=== PATIENT | female | born 1990 | race Caucasian/White ===

== ENCOUNTER → 2018-06-21 11:00 | Outpatient (CLI) | payer BC, SELFPAY ==
[2018-06-21 11:22] LABS: Basophils # 0.1 K/mm3 (0-0.2); Basophils % 0.6 % (0.1-2.0); Eosinophils # 0.1 K/mm3 (0.0-0.4); Eosinophils % 1.5 % (0.1-12.0); Hematocrit 44.2 % (37.0-47.0); Hemoglobin 15.3 g/dL (12.2-16.2); Lymphocytes # 2.2 K/mm3 (0.7-4.5); Lymphocytes % 23.1 % (10-50); Mean Corpuscular HGB Conc 34.6 g/dL (31.8-35.4); Mean Corpuscular Hemoglobin 30.5 pg (27.0-31.2); Mean Corpuscular Volume 88.2 fl (81-99); Mean Platelet Volume 7.4 fl (7.4-10.4); Monocytes # 0.5 K/mm3 (0.1-1.0); Monocytes % 5.2 % (1.7-9.3); Neutrophils # 6.8 K/mm3 (1.8-7.8); Neutrophils % 69.7 % (37.0-80.0); Platelet Count 288 K/mm3 (142-424); Red Blood Count 5.01 M/mm3 (4.20-5.40); Red Cell Distribution Width 12.4 % (11.5-17.5); White Blood Count 9.7 K/mm3 (4.8-10.8)
[2018-06-21 12:20] LABS: HCG,Quantitative 7531 mIU/mL
[2018-06-22 08:19] LABS: Rapid Plasma Reagin Ab Titer Non Reactive (NonRea<1:1)
[2018-06-23 06:22] LABS: Hepatitis B Surface Antigen Negative (Negative); Hepatitis C Antibody 0.1 s/co ratio (0.0-0.9); Rubella Antibodies, IgG 3.21 index (Immune >0.99)
[2018-06-23 06:23] LABS: HIV Screen 4th Generation wRfx Non Reactive (Non Reactive)
== END ==
PROVIDERS: Visit Provider Obstetrics & Gynecology
DX: Z34.90 Encounter for supervision of normal pregnancy, unspecified, unspecified trimester (principal)
CPT/HCPCS: 36415; 84702; 85025; 86592; 86703; 86762; 86850; 87340; 87380; G0432

== ENCOUNTER → 2018-06-23 16:18 | Outpatient (CLI) | payer BC, SELFPAY ==
[2018-06-23 18:02] LABS: HCG,Quantitative 12982 mIU/mL
== END ==
PROVIDERS: Visit Provider Obstetrics & Gynecology
DX: Z34.90 Encounter for supervision of normal pregnancy, unspecified, unspecified trimester (principal)
CPT/HCPCS: 36415; 84702

== ENCOUNTER → 2018-07-18 09:21 | Outpatient (CLI) | payer BC, SELFPAY ==
--- NOTE | 2018-07-18 09:23 | US_ITS ---
US OB transvaginal HISTORY: ITS.REASON: US OB Dates ORDERING PHYSICIAN: Fe Moulton MD PATIENT AGE: 28 years COMPARISON: None FINDINGS: An intrauterine gestational sac is present with a pole with a crown-rump length of 2.54 cmcm correlating to gestational age of 9w3d. heart tones are present with an FHR of 170 bpm's. Yolk sac is noted. The amnion and chorion have not yet fused. Adnexa: Adnexa. IMPRESSION: Live intrauterine gestation at 9 weeks 3 days as described above. Estimated due date by Ultrasound is 02/17/2019
== END ==
PROVIDERS: PCP Internal Medicine Adolescent Medicine; Visit Provider Obstetrics & Gynecology
DX: O26.841 Uterine size-date discrepancy, first trimester (principal)
CPT/HCPCS: 76817

== ENCOUNTER → 2018-09-28 12:38 | Outpatient (CLI) | payer BC, SELFPAY ==
--- NOTE | 2018-09-28 12:41 | US_ITS ---
PROCEDURE: US OB /MATERNAL DETAIL CLINICAL INDICATION: US OB Complete COMPARISON: OBTV US OB transvaginal from 07/18/2018 FINDINGS: Single viable intrauterine gestation. Variable position. Fetus was in the breech presentation on the final images Placenta: Posteriorplacenta grade 1. There is average amount fluid. The cervix appears satisfactory. Closed and measuring 4 cm in length. Complete survey performed and was unremarkable on the submitted images as in PACS. No discrete anomalies identified on survey imaging by technologist. Active fetus. Three-vessel cord with satisfactory umbilical cord insertion. 4- chamber heart noted. Survey of brain & ventricles Unremarkable. Face and neck survey unremarkable. Diaphragm and chest views unremarkable. Abdomen: Both kidneys noted and unremarkable. Stomach noted and satisfactory. Spine: Survey of the spine satisfactory with no anomalies identified nor imaged. Both arms and legs noted. Amniotic Fluid: Adequate. Maternal adnexa: No significant findings. Measurements: Average ultrasound age 19 weeks 6 days. Gestational Age 19 weeks 5 days Estimated due date by ultrasound age 102/16/2019. Estimated weight 315.7 ggrams. BPD = 19 weeks 6 days OFD = 20 weeks 1 day HC = 19 weeks AC = 2 days 20 weeks 0 days FL = 19 weeks 6 days Growth Percentile= 52 percent% Heart Rate = 140 bpm Cerebellum = Humerus = HC/AC is 1.12 CI is 0.78 FL/BPD is 0.69 FL/AC is 0.22 IMPRESSION: There is a single live fetus which is in in variable presentation with an average ultrasound age of 19 weeks and 6 days. No obvious anomalies. All parameters correlate. Please see above for detail Dictated by: Reinaldo Kuhn MD 10/02/2018 16:15 Signed by: <Electronically signed by Reinaldo Kuhn MD in [facility]> 10/02/2018 16:15
== END ==
PROVIDERS: PCP Internal Medicine Adolescent Medicine; Visit Provider Obstetrics & Gynecology
DX: Z36.0 Encounter for antenatal screening for chromosomal anomalies (principal)
CPT/HCPCS: 76811

== ENCOUNTER → 2018-11-27 11:13 | Outpatient (CLI) | payer BC, SELFPAY ==
[2018-11-27 14:15] VITALS: BP 130/67; PULSE 95; RESP 18; O2SAT 100
[2018-11-27 14:54] LABS: Glucose 1 Hour 117 mg/dL (74-106)
== END ==
LOC: LAB 11:15 → INF 14:18
PROVIDERS: Visit Provider Obstetrics & Gynecology
DX: Z34.90 Encounter for supervision of normal pregnancy, unspecified, unspecified trimester (principal)
CPT/HCPCS: 36415; 96372; J2790

== ENCOUNTER → 2019-01-05 13:19 | Outpatient (CLI) | payer BC, SELFPAY ==
--- NOTE | 2019-01-05 13:33 | US_ITS ---
PROCEDURE: US OB FOLLOW UP CLINICAL INDICATION: US OB- Growth CARRI- LGA Large for gestational age COMPARISON: US OB /MATERNAL DETAIL from 09/28/2018 FINDINGS: There is a single live intrauterine gestation in cephalic presentation. Cervix is closed and measures 3 cm. Average ultrasound age is 35 weeks 0 days. BPD 35 weeks 3 days, OFD 35 weeks 5 days, HC 35 weeks 1 day, AC 34 weeks 6 days, FL 34 weeks 2 days. heart tones are present 153 beats per minute. All parameters correlate. Estimated weight is 2492 g which is 69 percentile the placenta is posterior and grade 3. CARRI is lower normal at 9 cm. IMPRESSION: Live IUP at 35 weeks 0 days with an estimated weight of 2492 g which is 69th percentile. CARRI at lower normal at 9 cm Posterior grade 3 placenta Dictated by: Reinaldo Kuhn MD 01/05/2019 17:41 Electronically signed by Reinaldo Kuhn MD in [facility] 01/05/2019 17:41
== END ==
PROVIDERS: Visit Provider Obstetrics & Gynecology
DX: O36.60X0 Maternal care for excessive fetal growth, unspecified trimester, not applicable or unspecified (principal)
CPT/HCPCS: 76816

== ENCOUNTER → 2019-01-24 17:12 | Outpatient (CLI) | payer BC, SELFPAY | PROVIDERS: Visit Provider Obstetrics & Gynecology | DX: Z34.90 Encounter for supervision of normal pregnancy, unspecified, unspecified trimester (principal) | CPT/HCPCS: 86403 ==

== ENCOUNTER 2019-02-03 13:25 | Outpatient (CLI) | payer BC, SELFPAY ==
[2019-02-03 13:33] VITALS: BMI 31.1
[2019-02-03 13:45] VITALS: BP 121/73; PULSE 100; RESP 18; TEMP 36.7; O2SAT 97; BMI 31.1
[2019-02-03 13:50] LABS: Amphetamine/Metha Screen,Urine Negative ng/mL (<1000); Barbiturates Screen,Urine Negative ng/mL (<200); Benzodiazepines Screen,Urine Negative ng/mL (<200); Cannabinoid Screen,Urine Negative ng/mL (<50); Cocaine Screen,Urine Negative ng/mL (<300); Methadone Screen,Urine Negative ng/mL (<300); Opiate Screen,Urine Negative ng/mL (<300); Phencyclidine Screen,Urine Negative ng/mL (<25)
[2019-02-03 13:55] LABS: Appearance,Urine CLOUDY (Clear); Blood, Urine Negative (Negative); Color,Urine DK YELLOW (Yellow); Glucose,Urine (UA) Negative (Negative); Ketones,Urine TRACE (Negative); Leukocyte Esterase,Urine 1+ (Negative); Microscopic, Urine URINE MICROSCOPIC (MICROSCOPIC); Nitrate,Urine Negative (Negative); PH,Urine 6.5 (5.0-8.5); Protein,Urine TRACE (Negative); Specific Gravity, Urine 1.025 (1.005-1.030)
[2019-02-03 14:12] LABS: Bilirubin,Urine Negative (Negative)
[2019-02-03 14:13] LABS: Amorphous Sediment,Urine 1+ /lpf; Bacteria,Urine 1+ /lpf; Squamous Epithelial Cell,Urine TNTC #/hpf (0-5)
== END 2019-02-03 15:16 | disposition home or self-care (01) ==
LOC: OBOUT 13:26 → OB 13:28
PROVIDERS: Visit Provider Obstetrics & Gynecology
DX: O60.03 Preterm labor without delivery, third trimester (principal); Z3A.38 38 weeks gestation of pregnancy
CPT/HCPCS: 59025; 80305; 81001; 87086

== ENCOUNTER 2019-02-12 07:10 | Inpatient (IN) ==
[2019-02-12 08:32] LABS: Basophils # 0.1 K/mm3 (0-0.2); Basophils % 0.3 % (0.1-2.0); Eosinophils # 0.2 K/mm3 (0.0-0.4); Eosinophils % 1.5 % (0.1-12.0); Hematocrit 39.4 % (37.0-47.0); Hemoglobin 12.5 g/dL (12.2-16.2); Lymphocytes # 2.2 K/mm3 (0.7-4.5); Lymphocytes % 15.9 % (10-50); Mean Corpuscular HGB Conc 31.7 g/dL (31.8-35.4); Mean Corpuscular Volume 91.1 fl (81-99); Mean Platelet Volume 7.7 fl (7.4-10.4); Monocytes # 0.6 K/mm3 (0.1-1.0); Monocytes % 4.4 % (1.7-9.3); Neutrophils # 10.7 K/mm3 (1.8-7.8); Neutrophils % 77.9 % (37.0-80.0); Platelet Count 334 K/mm3 (142-424); Red Blood Count 4.33 M/mm3 (4.20-5.40); Red Cell Distribution Width 13.4 % (11.5-17.5); White Blood Count 13.7 K/mm3 (4.8-10.8)
--- NOTE | 2019-02-12 09:01 | History & Physical Report ---
OB - H&P: HPI Antepartum - History of Present Illness Chief complaint: Contractions History of present illness: She is a 29-year-old 3 para 2 who was 39+ weeks gestational age. She was due for induction tomorrow and came in in active labor. On examination she is 6 cm 100% Station -1 - History of Present Criteria for establishing EDC:: LMP confirmed by 1st trimester US care: good care Ultrasounds: normal 1st trimester US, normal mid trimester US Obstetrical complications: none Medical complications: none [facility] History I have reviewed the patient's past medical history: Yes *Have you ever received a pneumonia vaccine?: No *Have you received a flu vaccine this season?: No Other Medical History: Reports: Anemia Laterality Cases: Bilateral: Myringotomy (Ear Tubes), Tonsillectomy Other Surgeries: Yes: No Previous Surgery. No: Amputation: No Fractures: No - *Social History Smoking Status: Current every day smoker Tobacco Type: cigarettes # Packs/Day (cigarettes): 1 Alcohol Intake: never Alcohol Intake Frequency:: a few times a week Substance Use Type: former substance user, opiates *Occupational Status:: unemployed Housing: house Household Members: family *Travel in the last 8 weeks: None Family Hx:: Cancer, Diabetes Para: 2 Review of Systems - Review of Systems Review of systems:: pertinent systems reviewed and negative unless documented below Meds Home Medications Medication Instructions Recorded Confirmed Type prenat.vits,neyda,ese-jzdr-rkktf 1 tab PO DAILY #30 tab 06/21/18 01/31/19 Rx valacyclovir 1 gram tablet 1,000 mg PO BID #16 tab 11/23/18 01/31/19 Rx Allergies Allergy/AdvReac Type Severity Reaction Status Date / Time Sulfa (Sulfonamide Allergy Mild Verified 01/31/19 10:17 Antibiotics) OB - H&P: Exam - Physical Exam Vital signs: Temp Pulse Resp BP Pulse Ox 97.4 F L 93 H 18 115/67 98 02/12/19 07:29 02/12/19 07:29 02/12/19 07:29 02/12/19 07:29 02/12/19 07:29 - Constitutional no acute distress - Routine HEENT Exam Head: Present: normocephalic Eye: Present: EOMI, PERRL ENT: Present: mucous membranes moist - Routine Neck Exam Present: supple, full ROM - Routine Respiratory Exam Absent: accessory muscle use (good air entry bilaterally), respiratory distress, wheezes, crackles - Routine Cardiovascular Exam Present: RRR. Absent: murmur - Routine Abdominal Exam Present: soft, normoactive bowel sounds. Absent: tenderness, distended, guarding - Routine Rectal Exam Patient deferred: visual exam, digital exam - Routine Exam Patient deferred: external exam, groin exam, perineal exam - Routine Extremities Exam Present: full ROM. Absent: cyanosis, edema - Routine Skin Exam Present: intact. Absent: cyanosis - Routine Neurological Exam Present: alert, oriented X3 - Routine Psychiatric Exam Present: normal affect OB - Results - Labs Labs: Short CBC 02/12/19 Range/Units 08:15 WBC 13.7 H (4.8-10.8) K/mm3 Hgb 12.5 (12.2-16.2) g/dL Hct 39.4 (37.0-47.0) % Plt Count 334 (142-424) K/mm3 OB - A/P Antepartum (1) Normal delivery at term Current visit: Yes Status: Acute - Additional Plan Planning to breastfeed?: Yes Plan: expectant management Additional Information:: She is an active labor with regular contractions. She would like an epidural. She is 6 cm 100% and station -1. Nonstress test is reactive. We will expect a vaginal delivery.
--- NOTE | 2019-02-12 09:38 | Progress Note ---
[facility] Anesthesia Checklist - Patient Identification Patient Identification: Arm Band - Structural Data Admitted From: Inpatient Planned Operative Procedure/s: labor epidural Consent for Planned Operative Procedure(s) Verified: Yes Verified Documents: History and Physical - Chart Verification Results Verified: CBC, BMP - Additional verifications Patient : Yes Anesthesia Reactions: No Hx Blood Transfusions: No Blood Transfusion Reaction: No Cephalosporin Allergy: No Previous Colonoscopy: No - Cardiovascular Assessment Heart Sounds: S1 & S2 Pulse Strength: Baseline Pulse Rhythm: Regular Peripheral Edema: Yes - Airway Assessment C-Spine Mobility Assessed: No TMJ Mobility Assessed: No Dentition: Good Dentition - Neurological Assessment Level of Consciousness: Awake, Alert, Appropriate Hx Seizures: No Numbness or tingling in extremities: No - Anesthesia Plan Anesthesia Risk discussed: Yes Anesthesia Plan: Verified Anesthesia Type: Epidural [facility] History I have reviewed the patient's past medical history: Yes *Have you ever received a pneumonia vaccine?: No *Have you received a flu vaccine this season?: No Other Medical History: Reports: Anemia Anesthesia experience/problems:: none Laterality Cases: Bilateral: Myringotomy (Ear Tubes), Tonsillectomy Other Surgeries: Yes: No Previous Surgery. No: Amputation: No Fractures: No - *Social History Smoking Status: Current every day smoker Tobacco Type: cigarettes # Packs/Day (cigarettes): 1 Alcohol Intake: never Alcohol Intake Frequency:: a few times a week Substance Use Type: former substance user, opiates *Occupational Status:: unemployed Housing: house Household Members: family *Travel in the last 8 weeks: None Family Hx:: Cancer, Diabetes Para: 2
[2019-02-12 10:58] LABS: Microscopic, Urine URINE MICROSCOPIC (MICROSCOPIC)
--- NOTE | 2019-02-12 11:18 | Progress Note ---
Labor Note - Subjective: Date: 02/12/19 Time: 11:17 regular contraction - Objective: NST:: Reactive Contractions:: every 2-3 minutes Cervical Dilation:: 9-10 Effacement:: 100% Station: 0 Membranes: intact - Fetus: Monitoring?: Yes - Assessment: Labor progressing?: Yes Patient Problems: All Active Problems Normal delivery at term (Acute) Recurrent cold sores (Acute) Rh negative status during (Acute) Tobacco smoking affecting (Acute) (Acute) - Plan: Anesthesia for epidural?: Yes Continue to labor down?: Yes Plan for ?: No Continue to monitor?: Yes Start pushing?: Yes
[2019-02-12 11:42] LABS: Appearance,Urine CLOUDY (Clear); Blood, Urine 2+ (Negative); Color,Urine YELLOW (Yellow); Glucose,Urine (UA) Negative (Negative); Ketones,Urine Negative (Negative); Leukocyte Esterase,Urine 2+ (Negative); Protein,Urine Negative (Negative); Specific Gravity, Urine 1.025 (1.005-1.030); Urobilinogen,Urine 0.2 EU/dl (0.2)
[2019-02-12 12:24] LABS: Bilirubin,Urine Negative (Negative)
--- NOTE | 2019-02-12 12:24 | Procedure Note ---
- Delivery Note Delivery Date:: 02/12/19 Delivery Time:: 12:13 Anesthesia Type: Epidural Was labor medically induced?: No Induction method: none Gestational age (weeks): 39 delivered prior to 39 weeks?: No Justification for early elective delivery:: Active Labor Gender: Female at 1 minute: 9 at 5 minutes: 9 Delivery Procedure:: She is a 29-year-old 3 para 2 at 39+2 weeks gestational age. She came in in active labor and was found to be 5 to 6 cm dilated. Under labor epidural she progressed to full dilation and delivered spontaneously a liveborn female child at 12:13 PM in the afternoon of February 12, 2019. On deliver the head the anterior shoulder then delivered followed by the rest the infant's body atraumatically. The baby cried spontaneously and the oropharynx and nasopharynx were bulb suction. Since the baby was vigorous we allowed the cord to continue to pulsate for approximately 1 minute. The cord was then doubly clamped and cut. The baby was placed on the mother's abdomen for further care and the nurses assigned Apgars of 9 at 1 minute and 9 at 5 minutes. We then obtained cord blood as well as cord pH. Using gentle traction on the cord and countertraction on the fundus I was able to easily deliver the placenta intact at 1216. It had a normal three-vessel cord. There were no perineal or vaginal lacerations. She has she has O- blood, she is rubella immune and was group B streptococcus negative. She plans to breast-feed. Her network operations manager is Dr. Archibald. Estimated blood loss was approximately 400 cc. Placental Delivery Description: Spontaneous
[2019-02-12 12:27] LABS: Bacteria,Urine 4+ /lpf; Calcium Oxalate Crystals,Urine 1+ /lpf; Mucus,Urine 2+ /lpf; WBC,Urine TNTC #/hpf (0-3)
[2019-02-12 12:39] LABS: Amphetamine/Metha Screen,Urine Negative ng/mL (<1000); Barbiturates Screen,Urine Negative ng/mL (<200); Benzodiazepines Screen,Urine Negative ng/mL (<200); Cannabinoid Screen,Urine Negative ng/mL (<50); Cocaine Screen,Urine Negative ng/mL (<300); Methadone Screen,Urine Negative ng/mL (<300); Opiate Screen,Urine Negative ng/mL (<300); Phencyclidine Screen,Urine Negative ng/mL (<25)
--- NOTE | 2019-02-12 14:38 | Progress Note ---
Internal Medicine - PN: Subj *Date: 02/12/19 *Time: 14:36 Interval history: I was called to see the patient because she had passed a number of clots. On examination the uterus was somewhat boggy and full of clots. I was able to break up the clots within the uterus. She received 1 dose of Methergine. We will go ahead and type and cross her for a couple units of blood. The total blood loss was 940 cc in the pads. Exam Vital signs and Labs for Last 24 Hours: Temp Pulse Resp BP Pulse Ox 97.4 F L 93 H 18 115/67 98 02/12/19 07:29 02/12/19 07:29 02/12/19 07:29 02/12/19 07:29 02/12/19 07:29 Laboratory Results - last 24 hr 02/12/19 08:15: Blood Type O Negative, Antibody Screen Negative 02/12/19 08:15: WBC 13.7 H, RBC 4.33, Hgb 12.5, Hct 39.4, MCV 91.1, MCH 28.8, MCHC 31.7 L, RDW 13.4, Plt Count 334, MPV 7.7, Neut % (Auto) 77.9, Lymph % (Auto) 15.9, Parker % (Auto) 4.4, Eos % (Auto) 1.5, Baso % (Auto) 0.3, Neut # (Auto) 10.7 H, Lymph # (Auto) 2.2, Parker # (Auto) 0.6, Eos # (Auto) 0.2, Baso # (Auto) 0.1 02/12/19 10:40: Urine Color Yellow, Urine Appearance Cloudy, Urine pH 7.0, Ur Specific [place] 1.025, Urine Protein Negative, Urine Glucose (UA) Negative, Urine Ketones Negative, Urine Blood 2+, Urine Nitrate Negative, Urine Bilirubin Negative, Urine Urobilinogen 0.2, Ur Leukocyte Esterase 2+ A, Urine RBC 10-20, Urine WBC Tntc, Ur Squamous Epith Cells 10-20, Calcium Oxalate Crystal 1+, Urine Bacteria 4+, Urine Mucus 2+ 02/12/19 10:40: Urine Opiates Screen Negative, Urine Methadone Screen Negative, Ur Barbituates Screen Negative, Ur Phencyclidine Scrn Negative, Ur Amphetamines Screen Negative, U Benzodiazepines Scrn Negative, Urine Cocaine Screen Negative, U Marijuana (THC) Screen Negative 02/12/19 12:27: Cord ABG pH 7.39 I & O for Last 24 hours: Intake & Output 02/10/19 02/11/19 02/12/19 02/13/19 11:59 11:59 11:59 11:59 Weight 174 lb - Constitutional no acute distress Assessment and Plan (1) Normal delivery at term Current visit: Yes Status: Acute Category: Medical Code(s): O80 - Encounter for full-term uncomplicated delivery (2) hemorrhage Current visit: Yes Status: Acute Category: Medical Code(s): O72.1 - Other immediate hemorrhage - Assessment and plan all Dx Assessment and Plan for all problems:: She lost approximately 940 cc that was measured by weight. We will go ahead and type and cross her for 2 units of blood. We will get a hemoglobin now and then again in the morning. She has received 1 dose of Methergine and we will go ahead and start oral misoprostol. Her IV had come out and she did not receive all of her oxytocin.
[2019-02-12 15:05] LABS: Hemoglobin 11.7 g/dL (12.2-16.2)
[2019-02-12 21:14] LABS: Hematocrit 31.8 % (37.0-47.0)
[2019-02-12 21:17] LABS: Hemoglobin 10.4 g/dL (12.2-16.2)
[2019-02-13 06:56] LABS: Hematocrit 32.5 % (37.0-47.0); Hemoglobin 10.6 g/dL (12.2-16.2)
--- NOTE | 2019-02-13 10:33 | Progress Note ---
Internal Medicine - PN: Subj *Date: 02/13/19 *Time: 10:32 Interval history: She is doing very well this morning. She is eating and drinking and ambulating. Her post delivery hemoglobin is 10.0 despite the fact that she did have excessive bleeding yesterday. Her lochia now is normal. Exam Vital signs and Labs for Last 24 Hours: Temp Pulse Resp BP Pulse Ox 98.4 F 96 H 17 97/62 L 97 02/12/19 20:00 02/12/19 20:00 02/12/19 20:00 02/12/19 20:00 02/12/19 20:00 Laboratory Results - last 24 hr 02/12/19 08:15: Blood Type O Negative, Antibody Screen Negative, Crossmatch (AHG) See Detail 02/12/19 10:40: Urine Color Yellow, Urine Appearance Cloudy, Urine pH 7.0, Ur Specific [place] 1.025, Urine Protein Negative, Urine Glucose (UA) Negative, Urine Ketones Negative, Urine Blood 2+, Urine Nitrate Negative, Urine Bilirubin Negative, Urine Urobilinogen 0.2, Ur Leukocyte Esterase 2+ A, Urine RBC 10-20, Urine WBC Tntc, Ur Squamous Epith Cells 10-20, Calcium Oxalate Crystal 1+, Urine Bacteria 4+, Urine Mucus 2+ 02/12/19 10:40: Urine Opiates Screen Negative, Urine Methadone Screen Negative, Ur Barbituates Screen Negative, Ur Phencyclidine Scrn Negative, Ur Amphetamines Screen Negative, U Benzodiazepines Scrn Negative, Urine Cocaine Screen Negative, U Marijuana (THC) Screen Negative 02/12/19 12:27: Cord ABG pH 7.39 02/12/19 14:54: Hgb 11.7 L, Hct 37.0 02/12/19 21:05: Hgb 10.4 L D, Hct 31.8 L 02/13/19 06:39: Hgb 10.6 L, Hct 32.5 L 02/13/19 06:39: Blood Type O Negative, Antibody Screen Negative, Screen Negative, Baby's Rh Status Positive I & O for Last 24 hours: Intake & Output 02/10/19 02/11/19 02/12/19 02/13/19 11:59 11:59 11:59 11:59 Output Total 600 / 600 Balance -600 / -600 Weight 174 lb Microbiology Reports for the Last 24 Hours: Microbiology 02/12/19 10:40 Urine,Clean Catch Urine Culture - Preliminary - Constitutional no acute distress Assessment and Plan (1) Normal delivery at term Current visit: Yes Status: Acute Category: Medical Code(s): O80 - Encounter for full-term uncomplicated delivery (2) hemorrhage Current visit: Yes Status: Acute Category: Medical Code(s): O72.1 - Other immediate hemorrhage - Assessment and plan all Dx Assessment and Plan for all problems:: She continues to do well. We will plan to send her home tomorrow.
[2019-02-13 23:37] VITALS: BP 98/56
--- NOTE | 2019-02-14 10:00 | Discharge Summary ---
General - General Admission date:: 02/12/19 Discharge date: 02/14/19 HPI HPI: She is a 29-year-old 3 para 2 who was 39 weeks gestational age. She came in in active labor and was found to be 5 to 6 cm dilated. Hospital Course Hospital Course: She was in active labor and progressed under labor epidural to full dilation. She delivered spontaneously a liveborn female child at 12:13 PM in the afternoon of February 12, 2019. The baby was a liveborn female child weighing 7 pounds 12 ounces with Apgars of 9 at 1 minute and 9 at 5 minutes. She has done well and has remained afebrile with her hospitalization. She did have some excessive bleeding approximately a total of 1300 cc but her hemoglobin is 10.0. She is completely asymptomatic. As result that she did not receive a transfusion. She will continue with vitamins and iron. She has O Rh- blood, she is rubella immune and was group B streptococcus negative. She is breast-feeding. Her tanning salon attendant is Dr. Archibald. She is discharged home to follow-up with Dr. Moulton in approximately 2 to 3 weeks time. She will continue with her vitamins and iron. Her condition on discharge is stable. Objective Vital signs: Temp Pulse Resp BP Pulse Ox 97.7 F 78 18 98/56 L 99 02/13/19 20:00 02/13/19 20:00 02/13/19 20:00 02/13/19 20:00 02/13/19 20:00 no acute distress Results Labs on day of discharge: Labs from last 24 hours 02/13/19 15:25 Rhogam Infusion Rhogam release DS: Diagnosis - Discharge Diagnosis (1) Normal delivery at term Status: Acute (2) hemorrhage Status: Acute Discharge Plan - Patient Discharge Instructions ACTIVITY: No heavy lifting DIET: continue same diet Patient Instructions: DI for Hemorrhage, DI for Labor and Delivery, Vaginal , [facility] Post Discharge Instructions - Follow up Plan Follow up with: Arian Man MD [Staff Physician] - 02/28/19 3:00 pm Disposition: Home, Self-Fpc Medications: Home Medications Medication Instructions Recorded Confirmed Type Vit Calc,Iron,Folic [Kpn] 1 tab PO DAILY 02/12/19 02/12/19 History Valacyclovir HCl [Valacyclovir] 1,000 mg PO BIDP PRN 02/12/19 02/12/19 History Prescriptions/Medication Reconciliation: Continued Valacyclovir HCl [Valacyclovir] 1,000 mg PO BIDP PRN PRN Reason: Cold Sores Vit Calc,Iron,Folic [Kpn] 1 tab PO DAILY - Problem Reconciliation Problems Reviewed?: Yes
== END 2019-02-14 10:35 | disposition home or self-care (01) | DRG 807 ==
LOC: OBOUT 07:10 → OB 07:13
PROVIDERS: ADMIT Nurse Practitioner Obstetrics & Gynecology; ATTEND Nurse Practitioner Obstetrics & Gynecology
CPT/HCPCS: J2790

== ENCOUNTER → 2019-04-16 13:14 | Outpatient (CLI) | payer BC, SELFPAY ==
--- NOTE | 2019-04-16 13:15 | US_ITS ---
PROCEDURE: US TRANSVAGINAL CLINICAL INDICATION: US T/V- Check IUD Placement Bleeding with IUD placement COMPARISON: OBTV US OB transvaginal from 07/18/2018 FINDINGS: The uterus is 8 x 4 x 5 cm with a combined endometrial thickness of 7 mm. There is an IUD in place which appears to be in satisfactory position. No uterine mass evident. The left ovary is 2.7 x 2 cm containing small follicles the largest at 1 cm. The right ovary is 3 by 2.7 cm also containing small follicles. No cul-de-sac fluid is evident. IMPRESSION: There is an IUD in place which appears to be in satisfactory position. Otherwise negative Dictated by: Reinaldo Kuhn MD 04/17/2019 05:20 Electronically signed by Reinaldo Kuhn MD in [place] 04/17/2019 05:20
== END ==
PROVIDERS: PCP Obstetrics & Gynecology; Visit Provider Obstetrics & Gynecology
DX: Z97.5 Presence of (intrauterine) contraceptive device (principal)
CPT/HCPCS: 76830

== ENCOUNTER 2019-07-22 09:31 | Emergency (ER) | payer BC, SELFPAY ==
[2019-07-22 09:38] VITALS: BP 126/80; PULSE 77; RESP 16; TEMP 36.9; O2SAT 100; BMI 23.0
--- NOTE | 2019-07-22 09:45 | [facility].EDGENADL ---
ED Disposition Clinical Impression: Nasal congestion Disposition: Home, Self-Care Condition on Discharge: Good Instructions: DI for Sinusitis Additional Instructions: Follow-up with ENT within the next week for reevaluation. Prescriptions: methylPREDNISolone [Medrol] 4 mg PO DIRECTED #21 pack Prescription Printed Referrals: Tom Barkley MD [Staff Physician] - 3 days - Critical Care Critical Care Time: No Attestation: On 07/22/19, the high probability of a clinically significant, sudden or life threatening deterioration of the following system(s) required my full and direct attention, intervention and personal management. The time I documented below is in addition to time spent performing reported procedures but includes the following listed in this critical care notation. Medical Decision Making - Medical Records Medical records reviewed: Yes: I reviewed the patient's medical records. - Timmy Inquiry Pt receiving controlled substance: No Vital Signs: 07/22/19 09:38 Temperature 98.4 F Temperature Source Oral Pulse Rate [Right Radial] 77 Respiratory Rate 16 Blood Pressure [Right Arm] 126/80 Blood Pressure Mean [Right Arm] 95 Blood Pressure Source [Right Arm] Automatic Cuff Blood Pressure Position [Right Arm] Sitting 02 Sat by Pulse Oximetry 100 Oxygen Delivery Method Room Air Medical Decision Narrative: Patient with no fever, unlikely acute bacterial sinusitis. Suspect secondary to seasonal allergies or possibly viral URI. Recommended Mucinex D during the day and Benadryl at night, also will prescribe a steroid Dosepak. Follow-up outpatient with primary care and ENT for further management. There are no signs of otitis media, otitis externa. General Adult HPI - General Stated complaint: head congestion Time Seen by Provider: 07/22/19 09:40 Mode of Arrival: Ambulatory Source of Information: Patient Limitations: No Limitations - History of Present Illness HPI narrative: This is a 29-year-old female with no significant past medical history who presents to the emergency department for evaluation of nasal congestion and ear fullness for the last week and a half. No fevers. She has tried Sudafed and [id number] allergy medication with no relief of symptoms. She states that this happened to her before in December and it was secondary to earwax. No exacerbating or alleviating factors. - Related Data Home Medications Medication Instructions Recorded Confirmed Valacyclovir HCl [Valacyclovir] 1,000 mg PO BIDP PRN 02/12/19 04/13/19 Previous Rx's Medication Instructions Recorded methylPREDNISolone [Medrol] 4 mg PO DIRECTED #21 pack 07/22/19 Allergies Allergy/AdvReac Type Severity Reaction Status Date / Time Sulfa (Sulfonamide Allergy Mild Verified 04/13/19 11:00 Antibiotics) [facility] History - Hepatitis A Screen Attestation statement:: This patient has been screened for Hepatitis A risk factors. I have reviewed the patient's past medical history: Yes Medical History: Denies:: Seizures Other Medical History: Reports: Anemia. Denies: Blood Transfusion Reaction Laterality Cases: Bilateral: Myringotomy (Ear Tubes), Tonsillectomy Other Surgeries: Yes: No Previous Surgery. No: Amputation: No Fractures: No - Social History Smoking Status: Current every day smoker Tobacco Type: cigarettes # Packs/Day (cigarettes): 1 Alcohol Intake: never Alcohol Intake Frequency:: a few times a week Substance Use Type: former substance user, opiates Occupational Status: unemployed Housing: house Household Members: family Family Hx:: Cancer, Diabetes ROS Obtained: Yes All systems reviewed & no additional complaints Physical Exam - General General appearance: alert, in no apparent distress - Head Head exam: atraumatic, normocephalic - Eye Eye exam: Present: normal appearance, PERRL, EOMI - ENT ENT exam: Present: normal exam, normal orophary
[2019-07-22 09:54] VITALS: BP 126/80; PULSE 77; RESP 16; TEMP 36.9; O2SAT 100
== END 2019-07-22 09:55 | disposition home or self-care (01) ==
PROVIDERS: Emergency Provider Emergency Medicine
DX: J30.2 Other seasonal allergic rhinitis (principal); F17.210 Nicotine dependence, cigarettes, uncomplicated; F19.11 Other psychoactive substance abuse, in remission
CPT/HCPCS: 99281

== ENCOUNTER → 2020-08-26 15:25 | Outpatient (CLI) | payer BC, SELFPAY ==
[2020-08-26 16:36] LABS: Alanine Aminotransferase 15 U/L (12-78); Albumin Level 4.4 g/dl (3.5-5.0); Albumin/Globulin Ratio 1.8 (1.1-1.8); Alkaline Phosphatase 68 U/L (38-126); Anion Gap 12.2 mEq/L (5-15); Aspartate Amino Transferase 23 U/L (14-36); Bilirubin,Total 0.3 mg/dl (0.2-1.3); Blood Urea Nitrogen 10 mg/dl (7-17); Calcium 9.1 mg/dl (8.4-10.2); Carbon Dioxide 26 mmol/L (22.0-30.0); Chloride 104 mmol/L (98-107); Estimated Glomerular Filt Rate 118 ml/min (>60); GFR (African American) 143 ML/MIN (>60); Globulin 2.4 g/dL (1.3-3.2); Glucose 78 mg/dl (74-100); Potassium 4.2 mmoL/L (3.5-5.1); Sodium 138 mmol/L (136-145); Total Protein,Serum 6.8 g/dl (6.3-8.2)
[2020-08-26 16:52] LABS: 25-OH Vitamin D, Total 43.3 ng/mL (30-100)
[2020-08-26 17:06] LABS: Thyroid Stimulating Hormone 1.94 uIU/mL (0.465-4.68)
[2020-08-26 17:25] LABS: Vitamin B12 412 pg/mL (239-931)
[2020-08-26 21:26] LABS: Basophils # 0.1 K/mm3 (0-0.2); Basophils % 0.5 % (0.1-2.0); Eosinophils # 0.2 K/mm3 (0.0-0.4); Eosinophils % 2.6 % (0.1-12.0); Hematocrit 40.8 % (37.0-47.0); Hemoglobin 13.3 g/dL (12.2-16.2); Lymphocytes # 2.2 K/mm3 (0.7-4.5); Lymphocytes % 25.6 % (10-50); Mean Corpuscular HGB Conc 32.6 g/dL (31.8-35.4); Mean Corpuscular Hemoglobin 29.5 pg (27.0-31.2); Mean Corpuscular Volume 90.5 fl (81-99); Mean Platelet Volume 9.6 fl (7.4-10.4); Monocytes # 0.5 K/mm3 (0.1-1.0); Monocytes % 5.8 % (1.7-9.3); Neutrophils # 5.6 K/mm3 (1.8-7.8); Neutrophils % 65.5 % (37.0-80.0); Platelet Count 250 K/mm3 (142-424); Red Blood Count 4.51 M/mm3 (4.20-5.40); White Blood Count 8.6 K/mm3 (4.8-10.8)
== END ==
PROVIDERS: Visit Provider Internal Medicine Adolescent Medicine
DX: R53.81 Other malaise (principal); R53.83 Other fatigue
CPT/HCPCS: 36415; 80053; 82306; 82607; 83036; 83735; 84443; 85025

== ENCOUNTER 2021-07-18 08:25 | Emergency (ER) | payer BC, SELFPAY ==
[2021-07-18 08:27] VITALS: BP 119/77; PULSE 85; RESP 18; TEMP 37.1; O2SAT 97; BMI 29.2
--- NOTE | 2021-07-18 08:52 | PC.NURSE ---
rectal exam per md with female nurse present
--- NOTE | 2021-07-18 08:53 | PC.NURSE ---
Addendum entered by Marie Pacheco 07/18/21 08:58: patient was able to ambulate without any assistance. Original Note: patient went to the bathroom for urine sample. Urine collected and sent to lab. 150cc. of urine at this time was collected.
[2021-07-18 09:03] LABS: Microscopic, Urine URINE MICROSCOPIC (MICROSCOPIC)
--- NOTE | 2021-07-18 09:18 | PC.NURSE ---
Radiology called down and wanted patient's metal to be taken off so she can go to MRI.
--- NOTE | 2021-07-18 09:23 | PC.NURSE ---
commercial technician here to get patient and take her to MRI
[2021-07-18 09:25] LABS: Basophils # 0.2 K/mm3 (0-0.2); Basophils % 2.1 % (0.1-2.0); Eosinophils # 0.2 K/mm3 (0.0-0.4); Eosinophils % 2.7 % (0.1-12.0); Hematocrit 46.4 % (37.0-47.0); Hemoglobin 14.9 g/dL (12.2-16.2); Lymphocytes # 1.9 K/mm3 (0.7-4.5); Lymphocytes % 24.5 % (10-50); Mean Corpuscular HGB Conc 32.1 g/dL (31.8-35.4); Mean Corpuscular Hemoglobin 30.7 pg (27.0-31.2); Mean Corpuscular Volume 95.7 fl (81-99); Mean Platelet Volume 8.6 fl (7.4-10.4); Monocytes # 0.5 K/mm3 (0.1-1.0); Neutrophils # 4.9 K/mm3 (1.8-7.8); Neutrophils % 64.8 % (37.0-80.0); Platelet Count 246 K/mm3 (142-424); Red Blood Count 4.85 M/mm3 (4.20-5.40); Red Cell Distribution Width 12.8 % (11.5-17.5); White Blood Count 7.6 K/mm3 (4.8-10.8)
[2021-07-18 09:25] LABS: Urine Pregnancy, HCG Qual. Negative (Negative)
--- NOTE | 2021-07-18 09:26 | PC.NURSE ---
Patient went to MRI
[2021-07-18 09:27] LABS: Appearance,Urine CLEAR (Clear); Bilirubin,Urine Negative (Negative); Blood, Urine Negative (Negative); Color,Urine YELLOW (Yellow); Glucose,Urine (UA) Negative (Negative); Ketones,Urine Negative (Negative); Leukocyte Esterase,Urine Negative (Negative); Nitrate,Urine Negative (Negative); Protein,Urine Negative (Negative); Specific Gravity, Urine <= 1.005 (1.005-1.030); Urobilinogen,Urine 0.2 EU/dl (0.2)
[2021-07-18 09:28] LABS: Chloride 106 mmol/L (98-107); Potassium 3.7 mmoL/L (3.5-5.1); Sodium 139 mmol/L (136-145)
[2021-07-18 09:29] LABS: HCG Qualitative, Serum Negative (Negative)
--- NOTE | 2021-07-18 09:29 | MR_ITS ---
PROCEDURE INFORMATION: Exam: MR Lumbar Spine Without and With Contrast Exam date and time: 07/18/2021 10:03 AM Age: 31 years old Clinical indication: Numbness; Additional info: Loss of dorsiflexion/numbness TECHNIQUE: Imaging protocol: Multiplanar magnetic resonance images of the lumbar spine without and with intravenous contrast. Contrast material: PROHANCE; Contrast volume: 14 ml; Contrast route: IV; COMPARISON: US TRANSVAGINAL 04/16/2019 1:08 PM FINDINGS: Bones/joints: See L4-L5 finding. Spinal cord: The descending nerve roots are demonstrated in the expected dependent position within the spinal canal. No findings to suggest arachnoid adhesions. No abnormal regions of enhancement. L1-L2: No significant disc disease. No significant spinal canal stenosis. No neural foraminal stenosis. L2-L3: No significant disc disease. No significant spinal canal stenosis. No neural foraminal stenosis. L3-L4: Less than 2 mm disc bulge. No evidence of spinal or neural foraminal stenosis. L4-L5: Less than 2 mm disc bulge. Mild ligamentum flavum and facet hypertrophy at L4-5. Demonstration of bilateral synovial cysts in association with the articulating facets. These do not encroach upon the neural foramina. No evidence of spinal or neural foraminal stenosis. L5-S1: 2.5 mm central disc bulge. Mild thecal sac effacement. Spinal canal and neural foramina patent. Soft tissues: Unremarkable. Liver: Incomplete visualization of a low lying right lobe of the liver. Findings may correspond to a Lamonte's lobe. Consider follow-up if appropriate with computerized tomography of the abdomen. IMPRESSION: 1. 2.5 mm central disc bulge at L5-S1. 2. At L3-4 and L4-5: Less than 2 mm disc bulges. Spinal canal and neural foramina patent. 3. Hypertrophic facet changes with accompanying mild ligamentum flavum hypertrophy at L4-5. Bilateral synovial cysts in association with the articulating facets. No evidence of neural foraminal encroachment. 4. Incomplete visualization of low lying right lobe of the liver. Findings may correspond to a Lamonte's lobe. Follow-up, if appropriate with computerized tomography of the abdomen.
[2021-07-18 09:31] LABS: Alanine Aminotransferase 16 U/L (12-78); Albumin/Globulin Ratio 1.7 (1.1-1.8); Alkaline Phosphatase 66 U/L (38-126); Anion Gap 8.7 mEq/L (5-15); Aspartate Amino Transferase 29 U/L (14-36); Bilirubin,Total 0.7 mg/dl (0.2-1.3); Blood Urea Nitrogen 8 mg/dl (7-17); Calcium 9.3 mg/dl (8.4-10.2); Carbon Dioxide 28 mmol/L (22.0-30.0); Creatinine Clearance Estimated 162 mL/min (50-200); Estimated Glomerular Filt Rate 117 ml/min (>60); GFR (African American) 142 ML/MIN (>60); Glucose 103 mg/dl (74-100)
[2021-07-18 09:37] LABS: C-Reactive Protein 2.7 mg/L (0-4)
[2021-07-18 10:06] LABS: Erythrocyte Sedimentation Rate 9 mm/hr (0-20)
--- NOTE | 2021-07-18 10:06 | HMH.EDGENADL ---
ED Disposition Clinical Impression: Herniated lumbar intervertebral disc, Foot drop, right Disposition: Home, Self-Care Condition on Discharge: Good Additional Instructions: On Tuesday morning call Yesica at to schedule afternoon appointment with Dr. Louise was expecting to see you that day. Return to the ER for any new or worsening symptoms including inability to urinate, numbness in your groin, or stooling without control. Referrals: Otto Dowd MD [Primary Care Provider] - Time of Disposition: 14:44 - Critical Care Critical Care Time: No Attestation: On 07/18/21, the high probability of a clinically significant, sudden or life threatening deterioration of the following system(s) required my full and direct attention, intervention and personal management. The time I documented below is in addition to time spent performing reported procedures but includes the following listed in this critical care notation. Medical Decision Making - Medical Records Medical records reviewed: Yes: I reviewed the patient's medical records. - Timmy Inquiry Pt receiving controlled substance: No Vital Signs: 07/18/21 08:27 Temperature 98.7 F Temperature Source Oral Pulse Rate [Radial] 85 Respiratory Rate 18 Blood Pressure [Right Arm] 119/77 Blood Pressure Mean [Right Arm] 91 Blood Pressure Position [Right Arm] Sitting 02 Sat by Pulse Oximetry 97 Oxygen Delivery Method Room Air - Lab Data Lab Results 07/18/21 08:51: Urine Color Yellow, Urine Appearance Clear, Urine pH 7.0, Ur Specific [place] <= 1.005, Urine Protein Negative, Urine Glucose (UA) Negative, Urine Ketones Negative, Urine Blood Negative, Urine Nitrate Negative, Urine Bilirubin Negative, Urine Urobilinogen 0.2, Ur Leukocyte Esterase Negative, Urine RBC None, Urine WBC None, Ur Squamous Epith Cells 5-10, Urine Bacteria None 07/18/21 08:51: Urine HCG, Qual Negative 07/18/21 09:00: WBC 7.6, RBC 4.85, Hgb 14.9, Hct 46.4, MCV 95.7, MCH 30.7, MCHC 32.1, RDW 12.8, Plt Count 246, MPV 8.6, Neut % (Auto) 64.8, Lymph % (Auto) 24.5, [place] % (Auto) 6.0, Eos % (Auto) 2.7, Baso % (Auto) 2.1 H, Neut # (Auto) 4.9, Lymph # (Auto) 1.9, [place] # (Auto) 0.5, Eos # (Auto) 0.2, Baso # (Auto) 0.2, ESR 9 07/18/21 09:00: Sodium 139, Potassium 3.7, Chloride 106, Carbon Dioxide 28, Anion Gap 8.7, BUN 8, Creatinine 0.60, Estimated Creat Clear 162, Estimated GFR 117, Est GFR ( Amer) 142, Glucose 103 H, Calcium 9.3, Total Bilirubin 0.7, AST 29, ALT 16, Alkaline Phosphatase 66, C-Reactive Protein 2.7, Total Protein 8.0, Albumin 5.0, Globulin 3.0, Albumin/Globulin Ratio 1.7 07/18/21 09:00: Serum HCG, Qual Negative Result diagrams: 07/18/21 09:00 07/18/21 09:00 Orders (Tests/Meds): ED MEDICATIONS Discontinued Medications Generic Name Dose Route Start Last Admin Trade Name Regino PRN Reason Stop Dose Admin Gadoteridol 14 ml 07/18/21 10:26 07/18/21 10:29 Gadoteridol Inj 17ml Syringe IV 07/18/21 10:27 14 ml ONCE ONE Administration Medical Decision Narrative: 31-year-old female who presents with symptoms of an acute foot drop on the right with some tripping while trying to ambulate. On exam she does have lack of ability to dorsiflex. Sensation is paresthetic without numbness. Normal rectal tone no saddle anesthesia no urinary retention. MRI was obtained with and without contrast. It showed a 2.5 mm disc bulge of L5-S1 with thecal effacement no compression of the spinal canal or neural foramina. Discussed with [facility] neurosurgery who reviewed the images and felt they were reassuring but with her symptoms and was unable to refer to outpatient without evaluating her. They refused her for acute evaluation due to their divert protocol. Discussed with the patient and requested that I call [facility]ica williamson since that is the best option as she is from there. Discussed with a Dr. Louise, he stated without central symptoms involving the bowel o
--- NOTE | 2021-07-18 10:16 | PC.NURSE ---
patient is still upstairs in MRI.
--- NOTE | 2021-07-18 10:45 | PC.NURSE ---
patient is back from MRI.
--- NOTE | 2021-07-18 12:10 | PC.NURSE ---
Called to check on status of MRI reading and was advised that images were sent to an outside source to be read that is not normally utilized on the weekends. Mitch matamoros advised that she sent images to [facility] and that they are in que to be read MARTY.
--- NOTE | 2021-07-18 13:03 | PC.NURSE ---
Spoke with [facility] about getting follow-up for patient; possible transfer. Talked with [facility], they will get salesperson terrazzo tiles physician and have them return our call. Dr. Boss notified.
--- NOTE | 2021-07-18 13:56 | PC.NURSE ---
Dr. Boss speaking with [facility] at this time, regarding patient.
--- NOTE | 2021-07-18 14:11 | PC.NURSE ---
Called for a disc of images from [facility]
--- NOTE | 2021-07-18 14:15 | PC.NURSE ---
Spoke with [facility] about transfer and consult of patient to their facility with Spine. The transfer center stated that they would page Dr. Sheldon, the group controller physician and have him return call to our facility. Dr. Boss notified.
--- NOTE | 2021-07-18 14:30 | PC.NURSE ---
Spoke with transfer center at [facility], will be getting Dr. Rivera on the phone with Dr. Boss about transferring patient to their facility.
[2021-07-18 18:25] VITALS: BP 125/74; PULSE 78; RESP 16; TEMP 36.6; O2SAT 98
== END 2021-07-18 18:26 | disposition home or self-care (01) ==
PROVIDERS: Emergency Provider Student in an Organized Health Care Education/Training Program; PCP Internal Medicine Adolescent Medicine
DX: M51.26 Other intervertebral disc displacement, lumbar region; M21.371 Foot drop, right foot; Z88.2 Allergy status to sulfonamides; F11.11 Opioid abuse, in remission; Z83.3 Family history of diabetes mellitus; Z80.9 Family history of malignant neoplasm, unspecified
CPT/HCPCS: 72158; 76376; 80053; 81001; 81025; 84703; 85025; 85651; 86140; 99284; A9576

== ENCOUNTER → 2021-08-25 07:41 | Outpatient (CLI) | payer BC, SELFPAY | PROVIDERS: PCP Internal Medicine Adolescent Medicine; Visit Provider Nurse Practitioner Family | DX: R93.2 Abnormal findings on diagnostic imaging of liver and biliary tract (principal) ==

== ENCOUNTER → 2021-09-07 09:03 | Outpatient (CLI) | payer BC, SELFPAY ==
--- NOTE | 2021-09-07 09:06 | US_ITS ---
FINAL REPORT TECHNIQUE: Sonographic images of the right upper quadrant were obtained. CLINICAL HISTORY: ABNORMAL LIVER DIAGNOSTIC IMAGING FINDINGS: The liver is homogeneous. There is no focal hepatic lesion or intrahepatic biliary dilatation. The portal and hepatic veins are patent with normal directional flow. There are gallstones within the gallbladder. There is no pericholecystic fluid collection or gallbladder wall thickening. The common duct measures 2 mm which is within normal limits. The pancreatic tail is partially obscured by bowel gas. Otherwise, it has a normal appearance. The right kidney measures 9.9 cm in [id number] length. There is no hydronephrosis, mass, or stone. There is no right upper quadrant ascites. IMPRESSION: Gallstones within the gallbladder with a normal common duct. Reviewed, Interpreted and Dictated by Faby Tamayo MD Transcribed by Farzana Fowler Authenticated and . [facility]
== END ==
PROVIDERS: PCP Internal Medicine Adolescent Medicine; Visit Provider Nurse Practitioner Family
DX: R93.2 Abnormal findings on diagnostic imaging of liver and biliary tract (principal)
CPT/HCPCS: 76705

== ENCOUNTER 2022-06-22 18:56 | Emergency (ER) | payer OTHER, SELFPAY ==
--- NOTE | 2022-06-22 19:08 | CT_ITS ---
PROCEDURE INFORMATION: Exam: CT Abdomen And Pelvis With Contrast Exam date and time: 06/22/2022 8:10 PM Age: 32 years old Clinical indication: Abdominal pain; Additional info: R flank/ruq pain TECHNIQUE: Imaging protocol: Computed tomography of the abdomen and pelvis with contrast. Radiation optimization: All CT scans at this facility use at least one of these dose optimization techniques: automated exposure control; mA and/or kV adjustment per patient size (includes targeted exams where dose is matched to clinical indication); or iterative reconstruction. Contrast material: ISOVUE; Contrast volume: 75 ml; Contrast route: IV; REPORTING DATA: Count of CT and Cardiac NM exams in prior 12 months: This patient has received 0 known CTs and 0 known cardiac nuclear medicine studies in the 12 months prior to the current study. COMPARISON: MR LUMBAR SPINE WO/W CON 07/18/2021 10:03 AM FINDINGS: Liver: Normal. No mass. Gallbladder and bile ducts: Normal. No calcified stones. No ductal dilation. Pancreas: Normal. No ductal dilation. Spleen: Normal. No splenomegaly. Adrenal glands: Normal. No mass. Kidneys and ureters: Normal. No hydronephrosis. Stomach and bowel: Unremarkable. No obstruction. No mucosal thickening. Appendix: No evidence of appendicitis. Intraperitoneal space: Unremarkable. No free air. No significant fluid collection. Vasculature: Unremarkable. No abdominal aortic aneurysm. Lymph nodes: Unremarkable. No enlarged lymph nodes. Urinary bladder: Unremarkable as visualized. Reproductive: Prominent periuterine vessels. Ovary suboptimally visualized. Bones/joints: Unremarkable. No acute fracture. Soft tissues: Unremarkable. IMPRESSION: 1. No nephroureterolithiasis or hydroureter identified. 2. Prominent periuterine vessels. Although nonspecific query symptoms of pelvic congestion. 3. Hepatomegaly with mild fatty infiltration. 4. Liver measures 22 cm. Mild fatty infiltration.
[2022-06-22 19:24] VITALS: BP 125/81; PULSE 69; RESP 16; TEMP 36.9; O2SAT 98; BMI 23.1
[2022-06-22 19:30] VITALS: BP 126/85; PULSE 84; O2SAT 99
[2022-06-22 19:36] LABS: Microscopic, Urine URINE MICROSCOPIC (MICROSCOPIC)
[2022-06-22 19:42] LABS: Basophils # 0.1 K/mm3 (0-0.2); Basophils % 0.7 % (0.1-2.0); Chloride 101 mmol/L (98-107); Eosinophils # 0.2 K/mm3 (0.0-0.4); Hematocrit 42.7 % (37.0-47.0); Lymphocytes % 27.8 % (10-50); Mean Corpuscular HGB Conc 32.7 g/dL (31.8-35.4); Mean Corpuscular Hemoglobin 30.1 pg (27.0-31.2); Mean Corpuscular Volume 92.1 fl (81-99); Mean Platelet Volume 8.9 fl (7.4-10.4); Monocytes # 0.6 K/mm3 (0.1-1.0); Monocytes % 5.5 % (1.7-9.3); Platelet Count 267 K/mm3 (142-424); Red Blood Count 4.63 M/mm3 (4.20-5.40); Red Cell Distribution Width 12.8 % (11.5-17.5); Sodium 138 mmol/L (136-145); White Blood Count 10.9 K/mm3 (4.8-10.8)
[2022-06-22 19:43] LABS: Potassium 3.4 mmoL/L (3.5-5.1)
[2022-06-22 19:45] LABS: Alanine Aminotransferase 19 U/L (12-78); Alkaline Phosphatase 64 U/L (38-126); Anion Gap 14.4 mEq/L (5-15); Aspartate Amino Transferase 30 U/L (14-36); Bilirubin,Total 0.7 mg/dl (0.2-1.3); Blood Urea Nitrogen 9 mg/dl (7-17); Carbon Dioxide 26 mmol/L (22.0-30.0); Creatinine Clearance Estimated 113 mL/min (50-200); Estimated Glomerular Filt Rate 98 ml/min (>60); GFR (African American) 118 ML/MIN (>60)
[2022-06-22 19:46] LABS: Albumin Level 4.7 g/dl (3.5-5.0); Albumin/Globulin Ratio 1.6 (1.1-1.8); Calcium 8.8 mg/dl (8.4-10.2); Globulin 2.9 g/dL (1.3-3.2); Glucose 97 mg/dl (74-100); Lipase 30 U/L (23-300); Total Protein,Serum 7.6 g/dl (6.3-8.2)
[2022-06-22 19:47] LABS: Appearance,Urine CLEAR (Clear); Bilirubin,Urine Negative (Negative); Blood, Urine TRACE-I (Negative); Color,Urine YELLOW (Yellow); Glucose,Urine (UA) Negative (Negative); Ketones,Urine Negative (Negative); Leukocyte Esterase,Urine TRACE (Negative); Nitrate,Urine Negative (Negative); Protein,Urine Negative (Negative); Specific Gravity, Urine 1.025 (1.005-1.030); Urobilinogen,Urine 0.2 EU/dl (0.2)
[2022-06-22 19:52] LABS: HCG Qualitative, Serum Negative (Negative)
--- NOTE | 2022-06-22 21:03 | HMH.EDGENADL ---
Discharge Plan Disposition Patient Disposition: Home, Self-Care Condition: Good Prescriptions Prescriptions: No Action cetirizine 10 mg tablet 10 mg PO DAILY mirtazapine 15 mg tablet 15 mg PO DAILY fluticasone propionate 50 mcg/actuation spray,suspension INTRANASAL metronidazole 500 mg tablet 500 mg PO BID Qty: 10 0RF valacyclovir 1 gram tablet 1,000 mg PO BIDP PRN (Reason: Cold Sores) Qty: 90 0RF Rx Instructions: 1 tab BID x 2 days as needed for cold sores norethindrone-e.estradiol-iron [03/05 (28)] 1 mg-20 mcg (21)/75 mg (7) tablet 1 tab PO DAILY Qty: 84 3RF Referrals Follow up/Referrals: Carolin Olivares DO [Staff Physician] - See instructions Provider,Referral, [Primary Care Provider] - See instructions Activity Restrictions/Add. Instructions Additional Instructions/Restrictions: You were evaluated in the emergency department today.. Please also follow-up with a primary care provider. Return to the emergency department for any new or worsening symptoms. Take Tylenol and ibuprofen at home as needed for pain. At this time, recommend close follow-up with [facility] to for further evaluation of potential causes of your symptoms Clinical Impressions Clinical Impression: Abdominal wall pain in right flank Instructions Patient Instructions: DI for Acute Abdominal Pain Discharge ED Provider: Sharlene Medina General Adult HPI General Chief complaint: Abdominal Pain Stated complaint: sharp pain stomach to back Time Seen by Provider: 06/22/22 19:04 Mode of Arrival: Family Vehicle Limitations: No Limitations Description of Symptoms (Recalled from ER Triage Doc. by RN): sharp rlq abd pain intermittently x 7 years, acute exacerbation; no associating symptoms noted; patient denies previous work up for this issue; absolves from vaccines (per history)/smoker History of Present Illness HPI narrative: This patient is a 32-year-old female who reports history of chronic low back pain presented to the emergency department for evaluation of an acute exacerbation of chronic right-sided abdominal pain that she states she has been dealing with intermittently for 8 years. She states that she has not had work-up for this previously, as it always resolves before she goes to the doctor. She denies any fevers, chills, nausea, vomiting, changes in bowel movements, dysuria, hematuria, polyuria, abnormal vaginal discharge, or concerns for . She also denies concerns for STI. The pain is currently severe, constant, and in her right flank. Nothing makes better or worse. Related Data Home Medications Medication Instructions Recorded Confirmed cetirizine 10 mg tablet 10 mg PO DAILY 10/13/20 03/17/21 fluticasone propionate 50 ml intranasal 10/13/20 03/17/21 mcg/actuation nasal spray,suspension mirtazapine 15 mg tablet 15 mg PO DAILY 10/13/20 03/17/21 Previous Rx's Medication Instructions Recorded valacyclovir 1 gram tablet 1,000 mg PO BIDP PRN Cold Sores 11/09/19 #90 tabs norethindrone 1 mg-ethinyl 1 tab PO DAILY #84 tabs 12/26/20 estradiol 20 mcg ()-iron 75 mg () tablet ( FE 03/05 (28)) metronidazole 500 mg tablet 500 mg PO BID #10 tabs 03/17/21 Allergies Allergy/AdvReac Type Severity Reaction Status Date / Time Sulfa (Sulfonamide Allergy Mild Verified 03/17/21 09:28 Antibiotics) [facility] Disclaimer: The information contained in this section may have been updated after the patient was seen, as this information can be updated by other users. Social History Smoking Status: Current every day smoker tobacco type: cigarettes packs per day: 14 alcohol intake: never substance use type: former substance user and opiates current occupational status: other Travel in the last 8 weeks: None household members: family housing: house ROS Obtained: Yes All systems reviewed & no
[2022-06-22 21:18] LABS: RBC,Urine Occasional #/hpf (0-3); WBC,Urine Occasional #/hpf (0-3)
--- NOTE | 2022-06-22 21:30 | PC.NURSE ---
RN went to medicated and d/c pt, pt refusing medication r/t being upset about discharge. Pt PIV removed, pt given d/c packet.
[2022-06-22 21:32] VITALS: BP 114/76; PULSE 64; RESP 16; TEMP 36.6; O2SAT 99
== END 2022-06-22 21:34 | disposition home or self-care (01) ==
PROVIDERS: Emergency Provider Emergency Medicine
DX: R10.31 Right lower quadrant pain (principal); F17.210 Nicotine dependence, cigarettes, uncomplicated
CPT/HCPCS: 74177; 80053; 81001; 83690; 84703; 85025; 96361; 96374; 96375; 99285; J2405; Q9967

== ENCOUNTER 2023-07-08 13:00 | Outpatient (RCR) | payer BC, SELFPAY ==
--- NOTE | 2023-06-28 11:03 | HMH.PTOPEV ---
PT Outpatient Evaluation Rehab PT Outpatient Evaluation Start: 06/28/23 08:47 Freq: Status: Active Protocol: Document 06/28/23 08:48 KAYDENAPURVA (Rec: 06/28/23 11:03 SARAVANAN [id number]) E-signed By Sharlene Danielson, PT Outpatient Therapy Subjective History Subjective History Pt is a 33 y/o female who reports chronic low back pain. Pt states I have had back pain for my whole life. Pt reports 1.5 years ago she started experiencing numbness from her right knee to her right foot causing her to fall . Pt denies known trauma or injury. Pt reports she went to the ED due to this where she had imaging of her low back. Pt had a lumbar spine MRI at [facility] on 07/18/21 with impression of 1. 2.5 mm central disc bulge at L5-S1. 2. At L3-4 and L4-5: Less than 2 mm disc bulges. Spinal canal and neural foramina patent. 3. Hypertrophic facet changes with accompanying mild ligamentum flavum hypertrophy at L4-5. Bilateral synovial cysts in association with the articulating facets. No evidence of neural foraminal encroachment. Pt denies more recent imaging of her back. Pt reports intermittent right leg numbness since with last episode 6 months ago resulting in a fall, denies injuries from the fall. Pt denies saddle anesthesia but does report often having mild urinary incontinence. Pt states she is scheduled an appointment with her OBGYN regarding this. Pt reports she saw a surgeon in [facility] in 2021 and was told surgery was not necessary. Pt denies having PT for back pain until now. Pt reports current symptoms of constant low back pain aggravated by prolonged sitting, standing, walking and lifting. Pt reports she has a 5 year old autistic daughter that weighs ~70lbs she has to carry a lot which exacerbates her pain. Pt denies n/v, fevers, night sweats or abdominal pain. Pt denies further comorbidities to report. 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 Chief Complaint Pain,Stiff,Paresthesia Symptom Type Ache,Throb,Sharp,Dull,Numbness ,Tingling Symptoms Relieved By Rest/Positioning,Heat Symptoms Aggravated By Sitting,Standing,Physical Activity,Walking,Lifting, Sneeze/Coughing Current Functional Limitations Lifting,Housework,Sleeping, Standing,Squatting,Walking, Balance Symptom Description Constant but Variable Level of pain today (0-10) 5 Pain scale - at its best (0-10) 2 Pain scale - at its worst (0-10) 10 Lumbopelvic Eval Posture Lumbar Spine Posture Standing Position Decreased Lordosis Assistive device Assistive Devices None / NA Gait Observation General Gait Pattern Observation No Deviations/Normal Palapation tenderness bilateral lumbar spinal tenderness Yes: L3-L5, S1 buttock tenderness Yes: R piriformis Lumbar/Sacral Palpation Findings Tenderness Lumbar/Sacral Palpation Overall Comment 2-3/4 TTP Accessory Movement L-spine Vertebrae Accessory Movements Central [facility] [place] that Elicit Symptoms L3 bilateral L4 bilateral L5 bilateral S1 bilateral Range of Motion Lumbar Spine Active Flexion Range of 90 Motion (degrees) Lumbar Spine Active Extension Range of 10 Motion (degrees) Left Lumbar Spine Lateral Flexion Active 10 Range of Motion (degrees) Right Lumbar Spine Lateral Flexion 10 Active Range of Motion (degrees) Manual Muscle Test Left Knee Extension Strength Grade 5 Normal Knee Flexion Strength Grade 5 Normal Hip Flexion Strength Grade 5 Normal Hip Abduction Strength Grade 4 Good Hip Adduction Strength Grade 4 Good Hip Extension Strength Grade 4 Good Ankle Dorsiflexion Strength Grade 5 Normal Right Knee Extension Strength Grade 5 Normal Knee Flexion Strength Grade 4 Good Hip Flexion Strength Grade 4 Good Hip Abduction Strength Grade 4- Good- Hip Adduction Strength Grade 4 Good Hip Extension Strength Grade 4 Good Ankle Dorsiflexion Strength Grade 5 Normal DTR Rt Patellar 3+ Lt Patellar 3+ Rt Gastroc/Soleus 3+ Lt Gastroc/Soleus 3+ Altered Sensation Bilateral LE Dermatome Level L3,L4,L5,S1 Comment diminished light touch R compared to L Special Tests Hip Remy (MACEY) Test Positive Left,Positive Right Hip Piriformis Test Negative Right Unilateral Straight Leg Raise (Lasegue) Negative Left,Negative Right Test Oswestry Index Section 1 Pain Intensity The pain comes and goes and is severe Section 2 Personal Care (Washing,Dresing) my way of washing or dressing even though it causes some pain Section 3 Lifting I can lift heavy weights, but it gives me extra pain Section 4 Walking I have some pain when walking but it does not increase with distance Section 5 Sitting Pain prevents me from sitting for more than one hour Section 6 Standing I cannot stand more than 1 hour without increasing pain Section 7 Sleeping Because of my pain, my normal night's sleep is less than 6 hours sleep Section 8 Social Life My social life is normal but increases the degree of pain Section 9 Traveling I get some pain when traveling , but none of my usual forms of travel m Section 10 Changing Degreee of Pain My pain is gradually getting worse Score and Risk Level Oswestry Sc 19 Oswestry Risk Level Moderate Disability Outpatient Therapy Assessment Impairments Problems/Impairmments Palpation Tenderness,Impaired Range of Motion,Impaired Strength,Impaired Walking, Impaired Standing,Impaired Sitting,Impaired Lifting, Impaired Household Care, Impaired Recreational Activities,Subjective C/O Pain ,Impaired Self Care/Self Management Prognosis Rehab Potential Good Clinical Impression Consistent with Diagnosis Yes Short Term Goals Number of Weeks 3 Decrease Subjective C/O Pain Yes: Improve pain at worst to 8/10 to improve overall QOL Improve Self Care/Self Management Yes Patient to be Ind w/ HEP Yes Manager [employer] Goals Number of Weeks 6 Increase Range of Motion Yes: Improve lumbar ext/LF AROM to 20 Increase Strength Yes: Improve core/hip strength to 4+-5/5 grossly to assist with function Restore Ability to Lift Objects to Waist Yes: demonstrate proper Level mechanics to assist with lifting daughter Improve Oswestry Score Yes: Improve score to 14 or less to improve overall QOL Decrease Subjective C/O Pain Yes: Improve pain at worst to 6/10 to improve overall QOL Patient to be Ind w/ Advanced HEP Yes Outpatient Therapy Plan of Care Treatment Plan May Include Therapeutic Exercise Including Home Yes Exercise Program Manual Therapy Techniques Yes Neuromuscular Re-education Yes Therapeutic Activities to Return to Yes Previous Functional/Work Level ADL/Self Care Education Yes Mechanical Traction Yes Dry Needling Yes Thermal Modalities Yes Electrical Stimulation Yes Ultrasound/Phonophoresis Yes Iontophoresis Yes Massage Yes Eval/Re-Eval Yes Frequency Times per week 2 Duration Number of Weeks 4-6 Addendums This patient is a candidate for social No or vocational rehab? Patient/Guardian verbally acknowledges Yes understanding of treatment program and consents to further treatment? Patient/Guardian verbally acknowledges Yes understanding of diagnosis, prognosis and goals for treatment? Eval Complexity PT Charges 34146 - Low Complexity Shoulder/Elbow Eval Shoulder Objective Measurements Elbow Objective Measurements PHYSICIAN CERTIFICATION: I certify the specified therapy services for Carolin Gutierrez are required, authorized, and reviewed every 30 days.
== END 2023-07-08 13:05 | disposition home or self-care (01) ==
LOC: PT 13:00
PROVIDERS: Visit Provider Internal Medicine Adolescent Medicine
DX: M54.50 Low back pain, unspecified (principal)
CPT/HCPCS: 97163